=== PATIENT | female | born 1965 | race Caucasian/White ===

== ENCOUNTER 2017-05-13 09:09 | Emergency (ER) | payer SELFPAY ==
[~2017-05-13] VITALS: Ht 175.3 cm; Wt 50.0 kg
[2017-05-13 09:11] VITALS: BP 123/95; PULSE 92; RESP 28; TEMP 97.8; O2SAT 100
[2017-05-13 09:22] VITALS: BP 130/83; PULSE 85; RESP 22; O2SAT 100
[2017-05-13] MEDS ORDERED: predniSONE 20 MG TAB PO ONE (10:00)
[2017-05-13 10:21] VITALS: O2SAT 100
[2017-05-13] MEDS: RESP: ALBUTEROL 2.5 MG/IPRATROPIUM 0.5 MG NEB (SCH) INH (10:21)
[2017-05-13] MEDS ORDERED: VENTAER INH (10:32)
[2017-05-13] MEDS ORDERED: ALBU0.08 NEB (10:32)
[2017-05-13] MEDS ORDERED: PRED20 PO (10:32)
--- NOTE | 2017-05-13 10:33 | PD ---
HPI . Shortness of breath Chief Complaint: Respiratory Symptoms Time Seen by Provider: 09:22 Travel History International Travel<30 days: No Contact w/Intl Traveler<30days: No Traveled to known affect area: No History of Present Illness HPI This patient presents with the chief complaint of shortness of breath. She states that she always has shortness of breath she presents to us today because she is out of her albuterol. She has not been running fever. She has no change in her sputum production. Symptoms are usually relieved by albuterol. No noted exacerbating factor. She states that her shortness of breath is currently severe. 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) Thyroid Disease: Yes ?: Not Social History Alcohol Use: Yes (GLASS OF WINE OR TWO, REGULARLY) Tobacco Use: Yes (1/2 TO 1 PACK PER DAY) Substance Use: No Allergies-Medications (Allergen,Severity, Reaction): Coded Allergies: tiotropium (Verified Allergy, Severe, Anaphylaxis, 05/13/17) Reported Meds & Prescriptions Reported Meds & Active Scripts Active Prednisone 20 Mg Tab 60 Mg PO DAILY 4 Days Starting tomorrow Ventolin Hfa 18 GM Inh (Albuterol Sulfate) 90 Mcg/Act Aer 2 Puff INH Q4-6H PRN Albuterol Neb (Albuterol Sulfate) 2.5 Mg/3 Ml Neb 2.5 Mg NEB QID NEB Review of Systems Except as stated in HPI: all other systems reviewed are Neg General / Constitutional: No: Fever, Chills Respiratory: Positive: Cough, Shortness of Breath Physical Exam Narrative GENERAL: Patient is awake and alert. She does appear to be short of breath. SKIN: Warm and dry. HEAD: Atraumatic. Normocephalic. EYES: Pupils equal and round. ENT: No nasal bleeding or discharge. Mucous membranes pink and moist. NECK: Trachea midline. Neck is supple. CARDIOVASCULAR: Regular rate and rhythm. Heart sounds are normal. RESPIRATORY: No accessory muscle use. Decreased breath sounds. Wheezing heard loudest anteriorly. GASTROINTESTINAL: Abdomen soft, non-tender, nondistended. MUSCULOSKELETAL: No obvious deformities. No edema. NEUROLOGICAL: Awake and alert. No obvious cranial nerve deficits. Motor grossly within normal limits. Normal speech. PSYCHIATRIC: Appropriate mood and affect; insight and judgment normal. Data Data Last Documented VS Vital Signs Date Time Temp Pulse Resp B/P (MAP) Pulse Ox O2 Delivery O2 Flow Rate FiO2 05/13/17 10:21 100 21 05/13/17 09:26 80 22 05/13/17 09:22 130/83 (99) 05/13/17 09:11 97.8 Room Air Orders Orders Albuterol-Ipratropium Neb (Duoneb Neb) (05/13/17 10:00) Prednisone (Deltasone) (05/13/17 10:00) MDM Medical Decision Making Medical Screen Exam Complete: Yes Emergency Medical Condition: Yes Differential Diagnosis Differential diagnosis of dyspnea includes but is not limited to congestive heart failure, pneumonia, wheezing, pneumothorax, pulmonary embolism Narrative Course This patient presents with shortness of breath. She has a history of asthma. She is out of her albuterol. She will be treated with stacked nebs and oral prednisone. Diagnosis Primary Impression: Dyspnea Qualified Codes: R06.00 - Dyspnea, unspecified Additional Impression: Bronchospasm Patient Instructions: Bronchospasm (DC), General Instructions Med/Other Pt SpecificInfo: Prescription(s) given Scripts Prednisone (Prednisone) 20 Mg Tab 60 MG PO DAILY for 4 Days, TAB 0 Refills Starting tomorrow Prov: Ave Holliday MD 05/13/17 Albuterol 18 GM Inh (Ventolin Hfa 18 GM Inh) 90 Mcg/Act Aer 2 PUFF INH Q4-6H Y for SHORTNESS OF BREATH, #1 INHALER 0 Refills Prov: Ave Holliday MD 05/13/17 Albuterol Neb (Albuterol Neb) 2.5 Mg/3 Ml Neb 2.5 MG NEB QID NEB for Breathing Treatment, #60 NEBULE 0 Refills Prov: Ave Holliday MD 05/13/17 Disposition: 01 DISCHARGE HOME Condition: Stable Ave Holliday MD May 13, 2017 10:33
== END 2017-05-13 11:52 | disposition home or self-care (01) ==
LOC: NEPC 09:09
DX: J98.01 Acute bronchospasm (principal); F17.200 Nicotine dependence, unspecified, uncomplicated
CPT/HCPCS: 94640; 94664; 99284; J7512